=== PATIENT | male | born 1955 | race Caucasian/White ===

== ENCOUNTER 2017-12-22 13:10 | Emergency (ER) | payer SELFPAY ==
[2017-12-22] MEDS ORDERED: ASPIRIN PO ONE (13:20)
[2017-12-22 13:52] LABS: Hematocrit 49.8 % (35.5-45.6); Hemoglobin 17.1 gm/dl (11.8-15.2); Mean Corpuscular HGB Conc 34 % (32-34); Mean Corpuscular Hemoglobin 30 pg (28-32); Mean Corpuscular Volume 88 fl (84-94); Platelet Count 232 K/mm3 (140-440); Red Blood Count 5.67 M/mm3 (3.65-5.03)
[2017-12-22 14:07] LABS: BUN/Creatinine Ratio 22; Blood Urea Nitrogen 13 mg/dL (9-20); Calcium 9.2 mg/dL (8.4-10.2); Hemolysis Index 21
[2017-12-22 14:25] LABS: Anisocytosis 1+; Platelet Estimate Consistent w Auto; Total Cells Counted 100
[2017-12-22] MEDS ORDERED: NITROSTAT SL ONE (20:39)
[2017-12-22] MEDS ORDERED: TYLENOL PO ONE (20:39)
--- NOTE | 2017-12-22 20:42 | Emergency Department Report ---
ED Chest Pain HPI - General Chief Complaint: Chest Pain Stated Complaint: HTN Time Seen by Provider: 12/22/17 20:34 Source: patient Mode of arrival: Ambulatory Limitations: No Limitations - History of Present Illness Initial Comments: Patient is 62 years old male history of hypertension presented to the ER with a chief complaint of left chest pain for one week comes and goes. Patient describes his pain as pressure, does not radiate. Patient denied any shortness of breath, nausea or vomiting. No cough. No fever. MD Complaint: chest pain -: week(s) Pain Location: left chest Severity scale (0 -10): 0 Quality: tightness Worsens With: nothing - Related Data Previous Rx's Medication Instructions Recorded Last Taken Type Aspirin EC [Aspirin Enteric Coated 81 mg PO QDAY #30 tablet 12/09/16 Unknown Rx TAB] Atenolol [Tenormin] 25 mg PO QDAY #30 tablet 12/09/16 Unknown Rx Triamter/Hctz 37.5-25 mg 1 each PO QAM #30 tablet 12/09/16 Unknown Rx [Maxzide-25] Allergies Allergy/AdvReac Type Severity Reaction Status Date / Time No Known Allergies Allergy Verified 12/08/16 08:09 Heart Score - HEART Score History: Moderately suspicious EKG: Non-specific Age: 45-65 Risk factors: 1-2 risk factors Troponin: < normal limit HEART Score: 4 - Critical Actions Critical Actions: 4-6 pts:12-16.6% risk of adverse cardiac event. Should be admitted ED Review of Systems ROS: Stated complaint: HTN Other details as noted in HPI Comment: All other systems reviewed and negative Constitutional: denies: chills, fever Respiratory: denies: cough, orthopnea, shortness of breath, SOB with exertion, SOB at rest, wheezing Cardiovascular: chest pain. 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 - Social History Smoking Status: Never Smoker Substance Use Type: None - Medications Home Medications: Home Medications Medication Instructions Recorded Confirmed Last Taken Type Aspirin EC [Aspirin Enteric Coated 81 mg PO QDAY #30 tablet 12/09/16 Unknown Rx TAB] Atenolol [Tenormin] 25 mg PO QDAY #30 tablet 12/09/16 Unknown Rx Triamter/Hctz 37.5-25 mg 1 each PO QAM #30 tablet 12/09/16 Unknown Rx [Maxzide-25] ED Physical Exam - General Limitations: No Limitations General appearance: alert, in no apparent distress - Head Head exam: Present: atraumatic, normocephalic, normal inspection - Eye Eye exam: Present: normal appearance, PERRL - ENT ENT exam: Present: normal exam, normal orophraynx, mucous membranes moist - Neck Neck exam: Present: normal inspection, full ROM. Absent: tenderness, meningismus - Respiratory Respiratory exam: Present: normal lung sounds bilaterally. Absent: respiratory distress, wheezes, rales, rhonchi, chest wall tenderness, accessory muscle use, decreased breath sounds, prolonged expiratory - Cardiovascular Cardiovascular Exam: Present: regular rate, normal rhythm, normal heart sounds. Absent: systolic murmur, diastolic murmur - GI/Abdominal GI/Abdominal exam: Present: soft, normal bowel sounds. Absent: distended, tenderness, guarding, rebound, rigid, organomegaly, mass, bruit, pulsatile mass , hernia - Extremities Exam Extremities exam: Present: normal inspection, full ROM, normal capillary refill - Back Exam Back exam: Present: normal inspection, full ROM. Absent: CVA tenderness (R), CVA tenderness (L) - Neurological Exam Neurological exam: Present: alert, oriented X3, CN II-XII intact, normal gait - Skin Skin exam: Present: warm, intact, normal color. Absent: cyanosis, diaphoretic ED Course Vital Signs 12/22/17 12/22/17 12/22/17 13:17 16:40 20:14 Temperature 98.2 F Pulse Rate 71 67 Respiratory 16 Rate Blood Pressure 187/116 161/95 Blood Pressure 179/106 [Right] O2 Sat by Pulse 97 98 Oximetry 12/22/17 12/22/17 12/22/17 20:16 20:23 20:30 Temperature 98.1 F Pulse Rate 69 75 62 Respiratory 32 H 16 18 Rate Blood Pressure 161/95 170/104 Blood Pressure 161/95 [Right] O2 Sat by Pulse 100 100 97 Oximetry 12/22/17 12/22/17 12/22/17 20:46 21:00 21:01 Temperature Pulse Rate 61 69 66 Respiratory 20 21 Rate Blood Pressure 170/104 162/106 178/112 Blood Pressure [Right] O2 Sat by Pulse 99 94 Oximetry 12/22/17 12/22/17 21:02 21:16 Temperature Pulse Rate 66 Respiratory 16 21 Rate Blood Pressure 162/106 Blood Pressure [Right] O2 Sat by Pulse 96 Oximetry ED Medical Decision Making - Lab Data Result diagrams: 12/22/17 13:42 12/22/17 13:42 - EKG Data -: EKG Interpreted by Ma EKG shows normal: sinus rhythm Rate: normal - EKG Data Interpretation: no acute changes - Radiology Data Radiology results: report reviewed Referring Physician: MARISSA PRADO Patient Name: MARILOU MEADOWS Date of : 1955 Sex: Male Report Date: 2017-12-22 Report Status: [place] [address] XRay Report Signed Patient: MARILOU MEADOWS MR#: [id number] : 1955 Acct:[id number] Age/Sex: 62 / M ADM Date: 12/22/17 Loc: ED Attending Dr: Ordering Physician: MARISSA PRADO Date of Service: 12/22/17 Procedure(s): XR chest 1V ap Accession Number(s): [id number] cc: MARISSA PRADO Fluoro Time In Minutes: FINAL REPORT PROCEDURE: Chest. TECHNIQUE: Portable AP view. HISTORY: Chest pain. COMPARISON: No prior studies are available for comparison. FINDINGS: The heart and mediastinum appear normal. There is moderate tortuosity of the thoracic aorta. The lungs are clear and well expanded. There are no pleural effusions. The soft tissues and regional skeleton are unremarkable. IMPRESSION: No evidence of acute disease. Transcribed By: MRM Dictated By: JONATHAN BARKER MD Electronically Authenticated By: JONATHAN BARKER MD Signed Date/Time: 12/22/171747 DD/ 47 TD/TT: 12/22/171747 - Medical Decision Making Patient is still pain free. Denied any shortness of breath. EKG showed no acute abnormalities. 3 sets of troponin came back negative. Patient blood pressure now is 150/99. I will prescribe him Norvasc and I asked him to follow- up with his primary care physician for possible stress test. [facility] agreed with the plan and understood the plan. Critical care attestation.: If time is entered above; I have spent that time in minutes in the direct care of this critically ill patient, excluding procedure time. ED Disposition Clinical Impression: Chest pain, Malignant hypertension Disposition: TO HOME OR SELFCARE Is pt being admited?: No Condition: Stable Instructions: Chest Pain (ED), Hypertension (ED) Referrals: PRIMARY CARE, [Primary Care Provider] - 3-5 Days
--- NOTE | 2017-12-22 21:53 | XRay Report ---
FINAL REPORT PROCEDURE: Chest. TECHNIQUE: Portable AP view. HISTORY: Chest pain. COMPARISON: No prior studies are available for comparison. FINDINGS: The heart and mediastinum appear normal. There is moderate tortuosity of the thoracic aorta. The lungs are clear and well expanded. There are no pleural effusions. The soft tissues and regional skeleton are unremarkable. IMPRESSION: No evidence of acute disease.
[2017-12-22 22:59] VITALS: BP 153/99
== END 2017-12-22 22:59 | disposition home or self-care (01) ==
LOC: ED 13:10
DX: R07.89 Other chest pain (principal); I10 Essential (primary) hypertension; Z79.82 Long term (current) use of aspirin
CPT/HCPCS: 36415; 71045; 80048; 84484; 85007; 85025; 93005; 93010; 99284